=== PATIENT | male | born 1995 | race Caucasian/White ===

== ENCOUNTER 2019-12-11 18:53 | Emergency (ER) | payer OTHER ==
[~2019-12-11] VITALS: Ht 180.3 cm; Wt 110.0 kg
[2019-12-11 19:14] VITALS: BP 133/78
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
--- NOTE | 2019-12-11 20:01 | NUR ---
Patient/Caregiver given discharge instructions and they have confirmed that they understand the instructions. Patient ambulatory with steady gait.
== END 2019-12-11 20:50 | disposition home or self-care (01) ==
LOC: ED 20:35
DX: G89.11 Acute pain due to trauma (principal); M25.562 Pain in left knee; F17.200 Nicotine dependence, unspecified, uncomplicated; W18.39XA Other fall on same level, initial encounter; Y93.79 Activity, other specified sports and athletics; Y92.828 Other wilderness area as the place of occurrence of the external cause; Y99.8 Other external cause status
CPT/HCPCS: 29505; 99284